=== PATIENT | female | born 1985 | race Caucasian/White ===

== ENCOUNTER 2020-11-09 11:00 | Emergency (ER) | payer OTHER, MEDICAID ==
[~2020-11-09] VITALS: Ht 170.2 cm; Wt 81.7 kg
[2020-11-09] MEDS ORDERED: IBUPROFEN 600600 M1 PO (11:33)
[2020-11-09] MEDS ORDERED: CIPROFLOXIN HC2.5 M1 OPHTHALMIC (11:33)
[2020-11-09 11:44] VITALS: BP 123/64
== END 2020-11-09 11:44 | disposition home or self-care (01) ==
LOC: M.ERS 11:00
DX: S05.01XA Injury of conjunctiva and corneal abrasion without foreign body, right eye, initial encounter (principal); X58.XXXA Exposure to other specified factors, initial encounter; Y93.89 Activity, other specified; Y92.89 Other specified places as the place of occurrence of the external cause; Y99.8 Other external cause status

== ENCOUNTER 2021-02-20 19:00 | Emergency (ER) | payer OTHER, MEDICAID ==
[~2021-02-20] VITALS: Ht 172.7 cm; Wt 81.7 kg
[~2021-02-20 19:00] MED LIST: CIPROFLOXIN HC2.5 M1 OPHTHALMIC; IBUPROFEN 600600 M1 PO
[2021-02-20] MEDS ORDERED: APAP W/CODEINE1 TA2 PO ×2 (20:12→20:13)
[2021-02-20] MEDS ORDERED: MEDROLDOSEPACK PO (20:14)
[2021-02-20 20:30] VITALS: BP 112/49
== END 2021-02-20 20:30 | disposition home or self-care (01) ==
LOC: M.ERS 19:00
DX: M25.551 Pain in right hip (principal); F17.210 Nicotine dependence, cigarettes, uncomplicated